=== PATIENT | female | born 1975 | race Caucasian/White ===

== ENCOUNTER → 2016-06-18 | Outpatient (CLI) | payer OTHER ==
[2016-06-18 17:25] LABS: ABSOLUTE BASOPHILS # (AUTO) 0.1 10^3/uL (0.0-0.2); ABSOLUTE EOSINOPHILS # (AUTO) 0.2 10^3/uL (0.0-0.6); ABSOLUTE LYMPHOCYTES (AUTO) 1.8 10^3/uL (0.5-4.7); ABSOLUTE MONOCYTES (AUTO) 0.7 10^3/uL (0.1-1.4); ABSOLUTE NEUT (AUTO) 4.5 10^3/uL (1.7-8.2); BASOPHILS % (AUTO) 0.7 % (0-2); EOSINOPHILS % (AUTO) 2.9 % (0-6); HEMATOCRIT 40.3 % (36.0-47.0); HEMOGLOBIN 13.8 g/dL (12.0-15.5); HGB HCT DIFFERENCE 1.1; LYMPHOCYTES % (AUTO) 24.9 % (13-45); MEAN CORPUSCULAR HEMOGLOBIN 30.7 pg (27.0-33.4); MEAN CORPUSCULAR HGB CONC 34.2 g/dL (32.0-36.0); MEAN CORPUSCULAR VOLUME 90 fl (80-97); MONOCYTES % (AUTO) 9.4 % (3-13); RED BLOOD COUNT 4.49 10^6/uL (3.72-5.28); RED CELL DISTRIBUTION WIDTH 12.3 % (11.5-14.0); SEGMENTED NEUTROPHILS % (AUTO) 62.1 % (42-78); WHITE BLOOD COUNT 7.2 10^3/uL (4.0-10.5)
[2016-06-21 09:43] LABS: FREE T3 4.3 pg/mL (2.77-5.27)
== END ==
LOC: OD 16:50
PROVIDERS: ATTEND Specialist
DX: Z13.1 Encounter for screening for diabetes mellitus (principal); Z13.220 Encounter for screening for lipoid disorders; N93.9 Abnormal uterine and vaginal bleeding, unspecified
CPT/HCPCS: 36415; 83036; 84439; 84443; 84481; 85025

== ENCOUNTER 2019-12-03 05:32 | Day surgery (SDC) | payer OTHER ==
[2019-11-30 12:01] LABS: HEMATOCRIT 43.9 % (36.0-47.0); HEMOGLOBIN 15.1 g/dL (12.0-15.5); MEAN CORPUSCULAR HEMOGLOBIN 32.1 pg (27.0-33.4); MEAN CORPUSCULAR HGB CONC 34.5 g/dL (32.0-36.0); MEAN CORPUSCULAR VOLUME 93 fl (80-97); PLATELET COUNT 302 10^3/uL (150-450); RED BLOOD COUNT 4.72 10^6/uL (3.72-5.28); RED CELL DISTRIBUTION WIDTH 12.3 % (11.5-14.0); WHITE BLOOD COUNT 6.2 10^3/uL (4.0-10.5)
[2019-11-30 12:02] LABS: APPEARANCE,URINE CLEAR; BILIRUBIN,URINE NEGATIVE (NEGATIVE); COLOR,URINE YELLOW; GLUCOSE, URINE NEGATIVE (NEGATIVE); KETONES,URINE NEGATIVE (NEGATIVE); LEUKOCYTE ESTERASE,URINE NEGATIVE (NEGATIVE); NITRITE,URINE NEGATIVE (NEGATIVE); PROTEIN,URINE NEGATIVE (NEGATIVE); URINE SPECIFIC GRAVITY 1.012; UROBILINOGEN,URINE NEGATIVE mg/dL (<2.0)
[2019-11-30 12:17] LABS: ANION GAP 7 (5-19); BLOOD UREA NITROGEN 9 mg/dL (7-20); CALCIUM 9.9 mg/dL (8.4-10.2); CARBON DIOXIDE 29 mmol/L (22-30); CHLORIDE 99 mmol/L (98-107); GLUCOSE 106 mg/dL (75-110); POTASSIUM 4.2 mmol/L (3.6-5.0)
[~2019-12-03 05:32] MED LIST: LACTATED RINGERS 1000 ML IV PRN; LIDOCAINE 0.5% INJ-PF (5 MG/ML) 50 ML SDV SUBCUT PRN
[2019-12-03] MEDS ORDERED: MIDAZOLAM 2 MG/2 ML INJ ONE (06:39)
[2019-12-03] MEDS ORDERED: ONDANSETRON HCL INJ/PF 4 MG/2 ML SDV ONE (06:39)
[2019-12-03] MEDS ORDERED: KETOROLAC TROMETHAMINE 60 MG/2 ML SDV ONE (06:39)
[2019-12-03] MEDS ORDERED: PROPOFOL INJ 200 MG/20 ML VIAL IV ONE (06:40)
[2019-12-03] MEDS ORDERED: MORPHINE SULFATE 10 MG/ML INJ ONE (06:40)
[2019-12-03] MEDS ORDERED: LIDOCAINE 1% INJ-PF (10 MG/ML) 30 ML SDV ONE (07:06)
[2019-12-03] MEDS ORDERED: PROMETHAZINE HCL INJ 25 MG/1 ML VIAL IV PRN (07:33)
[2019-12-03] MEDS ORDERED: MEPERIDINE HCL/PF INJ 25 MG/1 ML DISP.SYRIN IV PRN (07:33)
[2019-12-03] MEDS ORDERED: FENTANYL CITRATE INJ/PF 100 MCG/2 ML AMPUL IV PRN ×3 (07:33)
[2019-12-03] MEDS ORDERED: DIPHENHYDRAMINE HCL 50 MG/ML VIAL IV PRN (07:33)
--- NOTE | 2019-12-03 07:47 | Operative Report ---
Operative Report DATE OF SURGERY: 12/03/19 PREOPERATIVE DIAGNOSIS: Lost IUD string POSTOPERATIVE DIAGNOSIS: Same OPERATION: Operative hysteroscopic removal of Mirena and reinsertion of new Mirena SURGEON: TIFFANY TRAN ANESTHESIA: LMAC TISSUE REMOVED OR ALTERED: None COMPLICATIONS: None ESTIMATED BLOOD LOSS: 5 mL's INTRAOPERATIVE FINDINGS: Mirena in proper location in the uterus. String wound around the T part of the IUD normal endometrial cavity post removal PROCEDURE: Unsuccessful attempts in the office were made and the patient was brought in the operating room for removal of her IUD. The usual risk of bleeding infection anesthesia were discussed the patient understood. After adequate anesthesia was ascertained bladder was left undrained surgical timeout performed an 8 mL's of 1% lidocaine were placed in the paracervical area operative hysteroscope was inserted after the cervix was dilated to admit the device and using grasping forceps the string was located and brought out the operative field. The Mirena was asked inspected and discarded. Re-inspection of the uterus demonstrated normal endometrial cavity. Uterine measurements were made and new Mirena was placed string was cut approximately 2 cm
[2019-12-03] MEDS ORDERED: OXYCODONE-ACETAMINOPHEN 5-325 MG TABLET PO PRN (08:30)
[2019-12-03] MEDS ORDERED: PROMETHAZINE HCL INJ 25 MG/1 ML VIAL IM PRN (08:30)
[2019-12-03] MEDS ORDERED: MORPHINE INJ PRN (08:30)
[2019-12-03 09:49] VITALS: BP 129/90
[2019-12-03] MEDS ORDERED: IBUPROFEN 800 MG TABLET PO SCH (14:00)
== END 2019-12-03 09:15 | disposition home or self-care (01) ==
LOC: OROUT 05:32
PROVIDERS: ATTEND Specialist
DX: Z30.433 Encounter for removal and reinsertion of intrauterine contraceptive device (principal); T83.39XA Other mechanical complication of intrauterine contraceptive device, initial encounter; X58.XXXA Exposure to other specified factors, initial encounter; Z03.818 Encounter for observation for suspected exposure to other biological agents ruled out; J45.909 Unspecified asthma, uncomplicated; R00.2 Palpitations
CPT/HCPCS: 58579; 86900; 86901; 36415; 86850; 85027; 87635; 81025; 80048; 81001; J2250; J1885; J3490; J2270; J2405; J2704; C9803